=== PATIENT | male | born 1925 | race Caucasian/White ===

== ENCOUNTER → 2016-07-23 | Outpatient (CLI) | payer MEDICARE, BC ==
[~2016-07-23] MED LIST: ALTACE PO; AMBIEN PO; AMITRYPTYLINE PO; COUMADIN PO; FLOMAX0.4 MG PO; KEPPRA750 MG PO; KLOR-CON PO; LASIX PO; LORTAB 10/500 T1 TAB PO; MYSOLINE250 MG PO; NEXIUM PO; OSTEO BIFLEX; PRAVACHOL PO; PRILOSEC PO; SINEMET-25/1001 TAB PO; TOPROL XL PO; TYLENOL #3 PO; WELLBUTRIN XL PO
--- NOTE | ~2016-07-23 | CR63 ---
[facility] A Service of [facility] RADIOLOGY TEXT RESULTS PATIENT: LUISANA AUSTIN LOCATION: [facility] : [birth year] UNIT #: [id number] AGE: [address]: LA PACE APRN SEX: M ORDER DR: [id number] [facility] [address] [place], [place] [address] [id number] O MR#: [id number] Acc #: [id number] NAME: LUISANA AUSTIN : 1925 SEX: M STUDY DATE/TIME: 07/23/2016 11:14 UNIT: [facility] ROOM: STUDY DESCRIPTION: CR Chest 2 View Attending Physician: La Pace Np Referring Physician: La Pace Np Ordering Physician: La Pace Np Primary Care Physician: Ady Atkinson M.D. MEDICAL IMAGING REPORT This report is preliminary unless electronic signature is present EXAM PA and lateral chest, 07/23. COMPARISON Examination is dated 07/08/2007. HISTORY Cough, congestion, shortness of breath for 3 weeks. TECHNIQUE PA and lateral views are obtained. FINDINGS The cardiac size is enlarged. There are multiple calcified granuloma in the right lung and there are calcifications in both caryn. The right hemidiaphragm is elevated with infiltrate or atelectasis in the right base. Left lung is clear. CONCLUSION Stable cardiomegaly. Continued elevation of the right hemidiaphragm with atelectasis or infiltrate in the right base. 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 Dictated by... Christopher Richardson M.D. THIS IS AN ELECTRONICALLY VERIFIED REPORT Christopher Richardson M.D. at 07/24/2016 7:25 AM ALICIA/tim TD: 07/23/2016 11:42 [facility] A Service [facility] RADIOLOGY TEXT RESULTS PATIENT: LUISANA AUSTIN LOCATION: [facility] : [birth year] UNIT #: [id number] AGE: [address]: LA PACE APRN SEX: M ORDER DR: JOB #: [id number] MEDICAL IMAGING REPORT Page 1 of 1 COPY
== END | disposition home or self-care (01) ==
LOC: CRAD 10:54
DX: J18.9 Pneumonia, unspecified organism (principal); I51.7 Cardiomegaly; Z87.09 Personal history of other diseases of the respiratory system
CPT/HCPCS: 71020